=== PATIENT | male | born 1990 | race Caucasian/White ===

== ENCOUNTER 2020-05-21 23:56 | Emergency (ER) | payer MEDICARE, OTHER ==
[2020-05-22 00:38] LABS: HEMOGLOBIN 16.3 gm/dl (14.0-17.5); RED BLOOD COUNT 5.15 M/UL (4.20-5.50)
[2020-05-22 01:02] LABS: BUN/CREATININE RATIO 18 (0-10)
== END 2020-05-22 11:57 | disposition home or self-care (01) ==
LOC: ER1 23:56
PROVIDERS: Family Medicine
DX: M79.604 Pain in right leg (principal); Z59.0 Homelessness
CPT/HCPCS: 80053; 82550; 82553; 83874; 84484; 85025; 93005; 99283; J7030